=== PATIENT | male | born 1965 | race Caucasian/White ===

== ENCOUNTER → 2016-07-27 | Outpatient (CLI) | payer BC ==
--- NOTE | 2016-07-27 20:55 | CT ---
EXAMINATION TYPE: CT abdomen pelvis wo con DATE OF EXAM: 07/27/2016 7:11 PM HISTORY: Right lower quadrant pain x [address] DLP: 1005.00 mGycm. Automated Exposure Control for Dose Reduction was Utilized. TECHNIQUE: CT scan of the abdomen and pelvis is performed without oral or IV contrast. COMPARISON: CT abdomen and pelvis April 23, 2009. FINDINGS: Within the limitations of a non-contrast study, the following observations are made. LUNG BASES: No significant abnormality is appreciated. LIVER/GB: Liver is markedly hypodense consistent with diffuse fatty infiltration. PANCREAS: No significant abnormality is seen. SPLEEN: Spleen is mildly enlarged at 13.6 cm on long axis on coronal image 64 not significantly banerjee ed from prior however. ADRENALS: No significant abnormality is seen. KIDNEYS: No renal stones or hydronephrosis is evident bilaterally. BOWEL: Evaluation bowel is slightly suboptimal secondary to lack of enteric contrast. Normal-appearin g appendix is seen from cecum. No suspicious small or large bowel dilatation is seen. There is single diverticulum in the sigmoid colon on axial image 75. No CT evidence for acute diverticulitis. GENITAL ORGANS: No suspicious abnormality is identified. LYMPH NODES: No greater than 1cm abdominal or pelvic lymph nodes are appreciated. Prominent but subce ntimeter bilateral groin lymph nodes are seen. OSSEOUS STRUCTURES: Mild multilevel spurring in the thoracolumbar spine is present. There is facet ar thropathy lower lumbar levels. OTHER: No significant additional abnormality is seen. IMPRESSION: No significant finding is seen on noncontrast study to account for patient's symptoms.
== END | disposition home or self-care (01) ==
LOC: RADCTMAIN 18:54
PROVIDERS: ATTEND Family Medicine
DX: R10.32 Left lower quadrant pain (principal)
CPT/HCPCS: 74176

== ENCOUNTER → 2019-04-27 | Outpatient (CLI) | payer BC ==
--- NOTE | 2019-04-27 18:38 | CT ---
EXAMINATION TYPE: CT brain wo con DATE OF EXAM: 04/27/2019 COMPARISON: None INDICATION: Right sided headaches. DLP: 1073 mGycm, Automated exposure control for dose reduction was used. CONTRAST: None CT of the brain is performed utilizing 3 mm thick sections through the posterior fossa and 3 mm thick sections through the remaining calvarium. Study is performed within 24 hours of arrival to the hosp ital. No abnormal hyperdensity is present to suggest an acute intracranial hemorrhage. No mass lesion is evident. No acute infarcts are evident. Subtle subcortical white matter change may be present in the right par ietal-occipital region. This could be further evaluated with MRI. This could be chronic white matter change. Ventricles and sulci are appropriate for the patient age. Paranasal sinuses and mastoid air cells within the [id number] are clear. IMPRESSIONS: 1. Subtle white matter change in the subcortical white matter of the right parietal-occipital regio n more likely related to chronic ischemia. MRI could further evaluate this finding.
== END | disposition home or self-care (01) ==
LOC: RADCTMAIN 16:50
PROVIDERS: ATTEND Family Medicine
DX: R90.89 Other abnormal findings on diagnostic imaging of central nervous system (principal); G43.909 Migraine, unspecified, not intractable, without status migrainosus
CPT/HCPCS: 70450

== ENCOUNTER → 2019-05-24 | Outpatient (CLI) | payer BC ==
--- NOTE | 2019-05-24 16:26 | MR ---
EXAMINATION TYPE: MR brain wo con DATE OF EXAM: 05/24/2019 COMPARISON: Prior MRI brain June 19, [address] brain April 27, 2019. HISTORY: Slight Headache TECHNIQUE: Multiplanar, multisequence imaging of the brain and brainstem is performed without IV cont rast. FINDINGS: Diffusion weighted images demonstrate no evidence of a recent infarct or other diffusion abnormality. There is no worrisome extra-axial fluid collection. The ventricular system and cisternal spaces are normal in size and appearance. The brain volume is age appropriate. Occasional small focus of T2 hyp erintensity seen throughout the white matter bilaterally. For reference to adjacent 3 to 4 mm lesions right frontal lobe axial image 23 redemonstrated. There are 4-5 scattered tiny lesions on axial imag e 21 more numerous from 2010 MRI. I estimate roughly 10-12 scattered lesions on current study. Midline structures demonstrate normal morphology. The craniocervical junction appears within normal limits. Normal vascular flow voids are present. Severe mucosal thickening left maxillary sinus with s ome patchy dependent fluid is now present. More mild mucosal thickening inferiorly in right maxillary sinus is seen currently. There is mild to moderate mucosal thickening anterior ethmoid sinuses bilat erally more prominent from prior. IMPRESSION: 1. Mild nonspecific white matter changes with some progression from 2010 MRI. Altered vascular mechan ics related to chronic migraine headaches and/or products of chronic small vessel ischemic change wou ld be in differential. 2. Chronic paranasal sinus disease as detailed above more prominent from the 2010 MRI and more recent [address]. New acute on chronic left maxillary sinus disease is noted from most recent CT.
== END | disposition home or self-care (01) ==
LOC: RADMRIMAIN 15:38
PROVIDERS: ATTEND Family Medicine
DX: R90.89 Other abnormal findings on diagnostic imaging of central nervous system (principal); R51 Headache
CPT/HCPCS: 70551

== ENCOUNTER → 2019-06-08 | Outpatient (CLI) | payer BC | END | disposition home or self-care (01) | LOC: LABWHC1 14:46 | PROVIDERS: ATTEND Otolaryngology | DX: I77.6 Arteritis, unspecified (principal); R51 Headache; R53.83 Other fatigue | CPT/HCPCS: 36415; 85652; 86038; 86431 ==

== ENCOUNTER → 2020-08-06 | Outpatient (CLI) | payer OTHER, MEDICARE | END | disposition home or self-care (01) | LOC: LABWHC1 15:41 | PROVIDERS: ATTEND Family Medicine | DX: Z03.818 Encounter for observation for suspected exposure to other biological agents ruled out (principal); Z20.822 Contact with and (suspected) exposure to COVID-19 | CPT/HCPCS: U0003; C9803 ==

== ENCOUNTER → 2020-10-28 | Outpatient (CLI) | payer BC, MEDICARE, OTHER ==
[2020-10-28 14:14] VITALS: BP 128/83; PULSE 72; RESP 16; TEMP 97.8
--- NOTE | 2020-10-28 14:42 | P.PAINCN ---
History of Present Illness - Reason for Consult Consult date: 10/28/20 - History of Present Illness This is 55 years old male with a history of severe chronic low back pain, started more than 3 months ago, patient reported that he had similar episode of low back pain centered over the last few years, and the pain intensity of this time is more severe than the previous years, the pain is constant, denies in the low back area, is not radiated to the lower extremity, denies any numbness or ti ngling sensation, denies any weakness in the lower extremity, denies any change in bowel movement or urination, patient had the physical therapy for few weeks without any benefit, patient tried medications Tylenol, Motrin, and he used steroid Dose pack without any benefit. Past Medical History Additional Past Medical History / Comment(s): Hernia History of Any Multi-Drug Resistant Organisms: None Reported Additional Past Surgical History / Comment(s): Bicep Surgery 6 years ago Past Anesthesia/Blood Transfusion Reactions: No Reported Reaction Past Psychological History: No Psychological Hx Reported Smoking Status: Never smoker Past Drug Use History: None Reported Physical Exam Vitals: Vital Signs Temp Pulse Resp BP Pulse Ox 10/28/20 13:59 97.8 F 72 16 128/83 98 Intake and Output 10/27/20 10/28/20 10/28/20 22:59 06:59 14:59 Other: Weight 97.522 kg Physical Examinations : -Constitutiona : Cooperative , not in acute distress . -HEENT : nech : supple , no Lymphadenopathy , normal thyroid size . : eyes : no ptosis , no icterus, no photophobia . - neurologic : Cranial nerve II to XII intact , no focal neurological deffecit . -psychatric : alert , oriented X 3 , appropriate affect , intact judgment and insight . -Lymphatic : no Lymphadenopathy . - musculoskeltal : Lumber spine moter stegnth lower extremities ,thigh and legs 5/5 Right side , 5/5 Left side deep tendon reflexes : normal Knee Jerk , normal ankle Jerk lumber facet Loading Test =positive Right , positive Left Range of motion of the lumbar spine Flexion 60 degrees, extension 10 degrees strait leg raising test = negative bilaterally Fabere test= negative bilaterally . mild tenderness over the Sacroiliac joint on the Right , and Left sides Results Comments: MRI of the lumbar spine L2-3 lumbar bulging disc disease and facet arthropathy L3 4 right foraminal protrusion and moderate canal stenosis and facet joint hypertrophy at L4 5 disc protrusion and facet joint hypertrophy and moderate foraminal stenosis L5-S1 facet joint hypertrophy Assessment and Plan Plan: Assessment and plan=1-lumbar spondylosis with lumbar facet arthropathy without myelopathy. 2-Lumbar foraminal stenosis. 3-lumbar degenerative disc disease. A shunt would be good candidate for diagnostic medial branch block lumbar area at L 3, L4, L5 bilaterally x2 possible RFA Time with Patient: Greater than 30 PQRS Measure Charge Sheet Measure #130: Documentation of Current Meds in Medical Chart: Patient's medications documented in chart Measure #226: Tobacco Use: Screen & Cessation Intervention: Pt not a tobacco user Measure #111: Pneumonia Vaccination: Pneumococcal vaccine NOT administered or previously given Measure #47: Advance Care Plan: Advance care planning discussed & documented, pt chose/unable to give Measure #412: Opioid Treatment Agreement: No documentation of signed opioid treatment agreement Measure #408: Opioid Therapy Follow-up Evaluation: Patient had NO f/u eval minimum every 3 months during opioid therapy Measure #317: Preventitive Care & Scrn High Bld Press & F/U: Normal blood pressure, f/u not required Measure #128: Body Mass Index (BMI) Screening & Follow-up: BMI documented ABOVE normal parameters - f/u documented Measure #131: Pain Assessment & Follow-up: Pain positive & plan documented, Follow-up scheduled Measure #431: Unhealthy Alcohol Use Preventative Care & Scrn: Patient not identified as an unhealthy alcohol user PQRS Narrative: Blood Pressure 128/83 Pain Intensity [Lower Back] 6 Scale Used Numeric (1 - 10) Hx Alcohol Use (MH) Yes
== END | disposition home or self-care (01) ==
LOC: PNWHC3 13:54
PROVIDERS: ATTEND Specialist
DX: M48.061 Spinal stenosis, lumbar region without neurogenic claudication (principal); M51.26 Other intervertebral disc displacement, lumbar region; M51.36 Other intervertebral disc degeneration, lumbar region; M47.816 Spondylosis without myelopathy or radiculopathy, lumbar region; M46.96 Unspecified inflammatory spondylopathy, lumbar region
CPT/HCPCS: 99211

== ENCOUNTER 2020-11-22 06:32 | Day surgery (SDC) | payer BC, OTHER ==
[2020-11-20 11:45] VITALS: BMI 28.3
[~2020-11-22 06:32] MED LIST: LACTATED RINGERS 1,000 ML IV SCH
[2020-11-22 07:08] VITALS: TEMP 98.2
[2020-11-22] MEDS ORDERED: LIDOCAINE 1% (10MG/ML) FOR IV START INTRADERMA ONE (07:10)
[2020-11-22] MEDS ORDERED: MIDAZOLAM 2 MG/2 ML VIAL ONE (07:27)
[2020-11-22] MEDS ORDERED: methylPREDNISolone ACETATE 40 MG/ML 1 ML VIAL ONE (07:27)
[2020-11-22] MEDS ORDERED: fentaNYL (PF) 50 MCG/ML 2 ML AMP ONE (07:27)
[2020-11-22] MEDS ORDERED: ROPIVACAINE 5MG/ML 20ML VIAL ONE (07:27)
--- NOTE | 2020-11-22 07:45 | P.PCN ---
Date of Procedure: 11/22/20 Procedure(s) Performed: PREOPERATIVE DIAGNOSIS : 1- Lumbar spondylosis with Facet Arthropathy without myelopathy . 2- Lumber degenerative disc disease POSTOPERATIVE DIAGNOSIS: 1- Lumbar spondylosis with Facet Arthropathy without myelopathy . 2- Lumber degenerative disc disease PROCEDURE: Diagnostic bilateral L3 , L4 , and L5 medial branch block under fluoroscopy guidance(fluoroscopy images available in the radiology Department ) ( To target the facet joint between L4-5 , and L5-S1 ) ANESTHESIA: monitered anesthesia care as per anesthesia department EBL: Minimal COMPLICATION: None PROCEDURE INDICATION: Chronic low back pain secondary to Facet arthropathy unresponsive to conservative treatment. PROCEDURE DESCRIPTION: the patient was seen and identified in the preop holding area , risks and benefits and possible complications of the procedure and alternative were discussed with the patient, and the patient agreed to proceed with the procedure and signed the consent and vital signs monitored during the procedure and fluoroscopy was used to maximize the benefit and accuracy of the needle placement, and sedation was given to decrease patient anxiety, patient was taken to the procedure room and placed in prone position vital signs monitored in the back prepped with chlorhexidine X3 then under strict sterile technique using a right oblique fluoroscopy ,the junction of the transverse process and the superior articulating process of the right L3 , L4 , and L5 vertebra which corresponding to the fluoroscopy image of the eye of the Wilson dog on the block side for the medial branches and subsequently , after local infiltration of skin and subcu tissuies with Ropivacaine 0.5 % , one mL at each level ,then 22-gauge Quincke-type needles , 3 needle was used , each one of them placed at the junction of the base of the transverse process and the superior articular process at the appropriate level, and the needle was advanced until the periosteum contacted, needle placement confirmed with AP oblique and lateral view and after appropriate needle placement confirmed, and after negative aspiration for heme and CSF and there was no paresthesia 1-1/2 mL of Ropivacaine 0.5% mixed with 20 mg Depo-Medrol , then half mL injected at each level after negative aspiration the needle subsequently removed and the same procedure repeated for the left side at left side at L3 , L4 and L5 levels. At the end of the procedure and the needles removed and a bandage applied after the skin was cleaned the cleaning solution patient taken to recovery room in stable condition and monitors in the recovery room for 20-30 minutes and discharged home in stable condition after discharge criteria met and patient will follow up with the pain clinic in 2-4 weeks
[2020-11-22] MEDS ORDERED: IV FLUID CONTINUATION 1,000 ML IV ONE (07:50)
[2020-11-22 07:52] VITALS: RESP 18
[2020-11-22 08:17] VITALS: BP 138/72; PULSE 78
--- NOTE | 2020-11-22 09:22 | FL ---
EXAMINATION TYPE: FL guided pain mgmt statistic DATE OF EXAM: 11/22/2020 HISTORY: Fluoroscopy time 7 seconds of fluoroscopy provided. IMPRESSION: 1. Fluoroscopy time.
== END 2020-11-22 08:21 | disposition home or self-care (01) ==
LOC: ORPAIN 06:32
PROVIDERS: ATTEND Specialist
DX: G89.29 Other chronic pain (principal); M47.816 Spondylosis without myelopathy or radiculopathy, lumbar region; M51.36 Other intervertebral disc degeneration, lumbar region; I10 Essential (primary) hypertension; K21.9 Gastro-esophageal reflux disease without esophagitis; Z79.899 Other long term (current) drug therapy
CPT/HCPCS: 64493; 64494; J2250; J1030; J3010; J2795

== ENCOUNTER 2020-12-27 06:35 | Day surgery (SDC) | payer BC ==
[2020-12-24 13:23] VITALS: BMI 29.4
[2020-12-27 06:59] VITALS: TEMP 96.3
[2020-12-27] MEDS ORDERED: LACTATED RINGERS 1,000 ML IV ONE (07:11)
[2020-12-27] MEDS ORDERED: LACTATED RINGERS 1,000 ML IV SCH (07:13)
[2020-12-27] MEDS ORDERED: methylPREDNISolone ACETATE 40 MG/ML 1 ML VIAL ONE (07:34)
[2020-12-27] MEDS ORDERED: ROPIVACAINE 5MG/ML 20ML VIAL ONE (07:34)
[2020-12-27] MEDS ORDERED: fentaNYL (PF) 50 MCG/ML 2 ML AMP ONE (07:34)
[2020-12-27] MEDS ORDERED: MIDAZOLAM 2 MG/2 ML VIAL ONE (07:34)
--- NOTE | 2020-12-27 07:46 | P.PCN ---
Date of Procedure: 12/27/20 Procedure(s) Performed: PREOPERATIVE DIAGNOSIS : 1- Lumbar spondylosis with Facet Arthropathy without myelopathy . 2- Lumber degenerative disc disease POSTOPERATIVE DIAGNOSIS: 1- Lumbar spondylosis with Facet Arthropathy without myelopathy . 2- Lumber degenerative disc disease PROCEDURE: Diagnostic bilateral L3 , L4 , and L5 medial branch block under fluoroscopy guidance(fluoroscopy images available in the radiology Department ) ( To target the facet joint between L4-5 , and L5-S1 ) #2nd ANESTHESIA: monitered anesthesia care as per anesthesia department EBL: Minimal COMPLICATION: None PROCEDURE INDICATION: Chronic low back pain secondary to Facet arthropathy unresponsive to conservative treatment. PROCEDURE DESCRIPTION: the patient was seen and identified in the preop holding area , risks and benefits and possible complications of the procedure and alternative were discussed with the patient, and the patient agreed to proceed with the procedure and signed the consent and vital signs monitored during the procedure and fluoroscopy was used to maximize the benefit and accuracy of the needle placement, and sedation was given to decrease patient anxiety, patient was taken to the procedure room and placed in prone position vital signs monitored in the back prepped with chlorhexidine X3 then under strict sterile technique using a right oblique fluoroscopy ,the junction of the transverse process and the superior articulating process of the right L3 , L4 , and L5 vertebra which corresponding to the fluoroscopy image of the eye of the Wilson dog on the block side for the medial branches and subsequently , after local infiltration of skin and subcu tissuies with Ropivacaine 0.5 % , one mL at each level ,then 22-gauge Quincke-type needles , 3 needle was used , each one of them placed at the junction of the base of the transverse process and the superior articular process at the appropriate level, and the needle was advanced until the periosteum contacted, needle placement confirmed with AP oblique and lateral view and after appropriate needle placement confirmed, and after negative aspiration for heme and CSF and there was no paresthesia 1-1/2 mL of Ropivacaine 0.5% mixed with 20 mg Depo-Medrol , then half mL injected at each level after negative aspiration the needle subsequently removed and the same procedure repeated for the left side at left side at L3 , L4 and L5 levels. At the end of the procedure and the needles removed and a bandage applied after the skin was cleaned the cleaning solution patient taken to recovery room in stable condition and monitors in the recovery room for 20-30 minutes and discharged home in stable condition after discharge criteria met and patient will follow up with the pain clinic in 2-4 weeks
[2020-12-27] MEDS ORDERED: IV FLUID CONTINUATION 1,000 ML IV ONE (07:51)
[2020-12-27 08:10] VITALS: BP 118/74; PULSE 88; RESP 16
--- NOTE | 2020-12-27 08:19 | FL ---
EXAMINATION TYPE: FL guided pain mgmt statistic DATE OF EXAM: 12/27/2020 HISTORY: Fluoroscopy time 10 seconds of fluoroscopy provided. IMPRESSION: 1. Fluoroscopy time.
== END 2020-12-27 08:29 | disposition home or self-care (01) ==
LOC: ORPAIN 06:35
PROVIDERS: ATTEND Specialist
DX: M47.816 Spondylosis without myelopathy or radiculopathy, lumbar region (principal); M51.36 Other intervertebral disc degeneration, lumbar region; I10 Essential (primary) hypertension; K21.9 Gastro-esophageal reflux disease without esophagitis; Z79.899 Other long term (current) drug therapy
CPT/HCPCS: 64493; 64494; J2250; J1030; J3010; J2795

== ENCOUNTER → 2021-01-27 | Outpatient (CLI) | payer BC ==
[2021-01-27 14:58] VITALS: BP 138/84; PULSE 69; RESP 18
--- NOTE | 2021-01-27 19:04 | P.PN ---
Subjective Progress Note Date: 01/27/21 This is Follow up visite for this 56 years old male with a history of severe chronic low back pain, he is diagnosed with lumbar spondylosis with lumbar facet arthropathy and lumbar foraminal stenosis , and lumbar degenerative disc disease , recently would have done diagnostic medial branch block lumbar area at L3 , L4 , L5 , bilaterally x2 , patient reported that he got good pain relief which is started second day after the first block, and he had no benefit after the second diagnostic medial branch block, basically patient had a negative result after both injections , the pain is constant, denies any numbness or tingling sensation, denies any weakness in the lower extremity, denies any change in bowel movement or urination, patient had the physical therapy for few weeks without any benefit, patient tried medications Tylenol, Motrin, and he used steroid Dose pack without any benefit. Physical Examinations : -Constitutiona : Cooperative , not in acute distress . -HEENT : nech : supple , no Lymphadenopathy , normal thyroid size . : eyes : no ptosis , no icterus, no photophobia . - neurologic : Cranial nerve II to XII intact , no focal neurological deffecit . -psychatric : alert , oriented X 3 , appropriate affect , intact judgment and insight . -Lymphatic : no Lymphadenopathy . - musculoskeltal : Lumber spine moter stegnth lower extremities ,thigh and legs 5/5 Right side , 5/5 Left side deep tendon reflexes : normal Knee Jerk , normal ankle Jerk lumber facet Loading Test =positive Right , positive Left Range of motion of the lumbar spine Flexion 60 degrees, extension 10 degrees strait leg raising test = negative bilaterally Fabere test= negative bilaterally . mild tenderness over the Sacroiliac joint on the Right , and Left sides Results MRI of the lumbar spine L2-3 lumbar bulging disc disease and facet arthropathy L3 4 right foraminal protrusion and moderate canal stenosis and facet joint hypertrophy at L4 5 disc protrusion and facet joint hypertrophy and moderate foraminal stenosis L5-S1 facet joint hypertrophy Assessment and plan=1-lumbar spondylosis with lumbar facet arthropathy without myelopathy. 2-Lumbar foraminal stenosis. 3-lumbar degenerative disc disease. Patient had negative result with the diagnostic medial branch block (he gets pain relief after 24 hours from the block , after the first block , and he had no pain relief after the second diagnostic block ) Patient could benefit from lumbar epidural steroid injection at L4 5 Patient will continue to do home exercise program ,,and is already done physical therapy Patient will continue to use Motrin Objective - Vital Signs Vital signs: Vital Signs Temp Pulse 69 01/27/21 14:41 Resp 18 01/27/21 14:41 BP 138/84 01/27/21 14:41 Pulse Ox 97 01/27/21 14:41
== END | disposition home or self-care (01) ==
LOC: PNWHC3 13:54
PROVIDERS: ATTEND Specialist
DX: M47.896 Other spondylosis, lumbar region (principal); M48.061 Spinal stenosis, lumbar region without neurogenic claudication; M51.36 Other intervertebral disc degeneration, lumbar region
CPT/HCPCS: 99211

== ENCOUNTER 2021-02-25 06:29 | Day surgery (SDC) | payer BC ==
[2021-02-21 14:09] VITALS: BMI 29.0
[2021-02-25 06:55] VITALS: RESP 16; TEMP 97.7
[2021-02-25] MEDS ORDERED: LIDOCAINE 1% (10MG/ML) FOR IV START INTRADERMA ONE (07:04)
[2021-02-25] MEDS ORDERED: MIDAZOLAM 2 MG/2 ML VIAL ONE (07:12)
[2021-02-25] MEDS ORDERED: methylPREDNISolone ACETATE 40 MG/ML 1 ML VIAL ONE (07:12)
[2021-02-25] MEDS ORDERED: SODIUM CHLORIDE 0.9% (PF) 10 ML VIAL ONE (07:12)
[2021-02-25] MEDS ORDERED: fentaNYL (PF) 50 MCG/ML 2 ML AMP ONE (07:12)
[2021-02-25] MEDS ORDERED: IOPAMIDOL M200 10 ML VIAL ONE (07:12)
--- NOTE | 2021-02-25 07:25 | P.PCN ---
Date of Procedure: 02/25/21 Procedure(s) Performed: PREOPERATIVE DIAGNOSIS: 1- Lumbar Degenerative Disc Diseases 2-Lumbar spondylosis with Facet arthropathy without myelopathy POSTOPERATIVE DIAGNOSIS: Same as preop diagnosis. PROCEDURE 1. Lumbar epidural steroid injection under fluoroscopic guidance at the L4-5 level. (Fluoroscopy imaging was available in radiology department) 2. Lumbar epidurogram. ANESTHESIA: Local with 1% lidocaine 3 ml and , moderate sedation with intravenous Versed 2 mg ,and fentanyle 50 Mcg EBL: Minimal PROCEDURE INDICATION: The patient with low back pain and radiculitis symptoms unresponsive to conservative treatment. Fluoroscopy was used to optimize visualization of the needle placement and to maximize safety. PROCEDURE DESCRIPTION / TECHNIQUE: The patient was seen and identified in the preoperative area. Risks, benefits, complications including but not limited to infections ,bleeding ,allergic reaction to the medications ,nerve damage and not complete pain releife , and alternatives were discussed with the patient. The patient agreed to proceed with the procedure and signed the consent. IV was started, and vital signs were stable. Patient was taken to the OR and time out was completed. The patient was placed in the prone position on procedure table and a pillow was placed under the abdomen to reduce lumbar lordosis. The lumbosacral area was prepped and draped in the usual sterile fashion.ere closely monitored during the procedure. Co nscious sedation was used during the procedure to decrease patients anxiety. Vital signs was monitered during the entire procedure. Using anterior-posterior fluoroscopy, the L4-5 interlaminar space was identified and the skin over this site was marked and then infiltrated with 1% lidocaine subcutaneously. Subsequently, a 20-gauge Tuohy epidural needle was inserted and advanced toward the epidural space using the ``Loss of resistance technique and guided by AP and lateral fluoroscopy. The correct needle position in the epidural space was verified with the injection of 2 mL of the water soluble contrast dye Isovue 200 contrast and observing an excellent epidurogram with the epidural spread of the dye, after negative aspiration for blood and CSF and in the absence of paresthesias. Again after negative aspiration, a 6 ml mixture containing 80 mg of Depo-medrol , and 2 ml of preservative free Normal Saline, and 2 ml of preservative free lidocaine 1% solution was injected and a washout of epidurogram was seen. Needle was withdrawn intact, skin was cleansed, and bandages were applied. COMPLICATIONS: None DISPOSITION / PLANS: The patient was placed in a supine position and transferred to the recovery area in a stable condition for observation. There was no evidence of lower extremity motor or sensory deficit after the procedure. Patient was discharged from the recovery room after meeting discharge criteria. Home discharge instructions were given to the patient by the staff. The patient was reexamined prior to discharge. The patient will schedule a follow up in the clinic in 2-4 weeks.
[2021-02-25] MEDS ORDERED: IV FLUID CONTINUATION 700 ML IV ONE (07:30)
[2021-02-25 08:13] VITALS: BP 118/68; PULSE 63
--- NOTE | 2021-02-25 10:14 | FL ---
Fluoroscopy HISTORY: Pain 2 seconds fluoroscopy time supplied to the referring clinician. 1 intraoperative C-arm images docume nt the procedure. See dictated report from anesthesia.
== END 2021-02-25 08:01 | disposition home or self-care (01) ==
LOC: ORPAIN 06:29
PROVIDERS: ATTEND Specialist
DX: M51.36 Other intervertebral disc degeneration, lumbar region (principal); M47.816 Spondylosis without myelopathy or radiculopathy, lumbar region
CPT/HCPCS: 62323; J2250; J1030; J3010; Q9966; 99152

== ENCOUNTER → 2021-03-05 | Outpatient (CLI) | payer BC ==
--- NOTE | 2021-03-06 02:04 | XR ---
EXAMINATION TYPE: XR abdomen 1V DATE OF EXAM: 03/05/2021 5:02 PM CLINICAL HISTORY: Constipation. TECHNIQUE: Upright images of the abdomen and pelvis were obtained COMPARISON: None. FINDINGS: Nonspecific bowel gas pattern. Elevation of the right hemidiaphragm. No significantly abnor mal colonic fecal debris. There is no visceromegaly, pneumoperitoneum, or abnormal calcification appr eciated. The lung bases are clear. The osseous structures are intact. Degenerative changes of the lum bar spine. IMPRESSION: Nonspecific bowel gas pattern.
== END | disposition home or self-care (01) ==
LOC: RADXRMAIN 16:41
PROVIDERS: ATTEND Family Medicine
DX: K59.00 Constipation, unspecified (principal)
CPT/HCPCS: 74018

== ENCOUNTER → 2021-03-27 | Outpatient (CLI) | payer BC ==
--- NOTE | 2021-03-28 07:43 | CT ---
EXAMINATION TYPE: CT abdomen pelvis wo con DATE OF EXAM: 03/27/2021 COMPARISON: 07/27/2016 HISTORY: Diverticulosis. LT side/back pain. Oral contrast CT DLP: 884 mGycm Examination of the solid and hollow viscera is limited given the lack of contrast. FINDINGS: LUNG BASES: No evidence for nodule. No evidence for infiltrate. Small sliding-type hiatal hernia. LIVER/GB: The gallbladder is unremarkable. No space-occupying hepatic lesion. PANCREAS: No pancreatic mass identified. No inflammatory process seen. SPLEEN: No evidence for splenomegaly. No intrasplenic lesions seen. ADRENALS: No adrenal nodules identified. No evidence for thickening. KIDNEYS: No evidence for renal mass. No nephrolithiasis. No hydronephrosis. BOWEL: Appendix has a normal appearance. No evidence of bowel obstruction. No inflammatory process. M ild sigmoid diverticulosis without diverticulitis. Lymph nodes: No evidence for adenopathy greater than 1 cm. Abdominal aorta: Atheromatous changes seen. No evidence for aneurysm. Genital organs: No significant abnormality. Other: Mild degenerative change lumbar spine. IMPRESSION: 1. Mild sigmoid diverticulosis without diverticulitis. No significant abnormality appreciated.
== END | disposition home or self-care (01) ==
LOC: RADCTMAIN 16:13
PROVIDERS: ATTEND Surgery
DX: K57.32 Diverticulitis of large intestine without perforation or abscess without bleeding (principal)
CPT/HCPCS: 74176

== ENCOUNTER 2021-04-15 06:29 | Day surgery (SDC) | payer BC ==
[2021-04-10 08:48] VITALS: BMI 29.0
[2021-04-15 06:47] VITALS: TEMP 98.2
[2021-04-15] MEDS: LACTATED RINGERS 1,000 ML IV SCH ×2 (06:54→07:20)
[2021-04-15] MEDS ORDERED: methylPREDNISolone ACETATE 80 MG/ML 1 ML VIAL ONE (07:29)
[2021-04-15] MEDS ORDERED: fentaNYL (PF) 50 MCG/ML 2 ML AMP ONE (07:29)
[2021-04-15] MEDS ORDERED: IOPAMIDOL M200 10 ML VIAL ONE (07:29)
[2021-04-15] MEDS ORDERED: MIDAZOLAM 2 MG/2 ML VIAL ONE (07:29)
[2021-04-15] MEDS ORDERED: LACTATED RINGERS 1,000 ML IV SCH (07:30)
--- NOTE | 2021-04-15 07:36 | P.PCN ---
Date of Procedure: 04/15/21 Description of Procedure: Procedure: 1. L4-L5 Epidural steroid injection under fluoroscopic guidance, 2. Lumbar epidurogram PREOPERATIVE DIAGNOSIS: Lumbar degenerative disc disease, and Lumbar radiculopathy. POSTOPERATIVE DIAGNOSIS: Lumbar degenerative disc disease, and Lumbar radic ulopathy. SURGEON: Phylicia Campos ANESTHESIA: Local with 1% lidocaine, and IV sedation: Versed 2 mg, and fentanyl 100 g. EBL: None. Specimen removed: None Fluoroscopic image: saved to electronic medical records PROCEDURE INDICATION: The patient had history of Lumbar degenerative disc disease and Lumbar radiculopathy. Patient had more than 80% pain relief pain relief with the previous epidural steroid injection for more than 3 weeks. Failed to conservative therapy. Came here for repeat epidural steroid injection. PROCEDURE DESCRIPTION: The patient was seen and identified in the preoperative area. Risks, benefits, complications, and alternatives were discussed with the patient. The patient agreed to proceed with the procedure and signed the consent. IV was started, and vital signs were stable. Patient was taken to the procedure area, and time out was completed. The patient was placed in the prone position on procedure table and a pillow was placed under the abdomen to reduce lumbar lordosis. The lumbosacral area was prepped and draped in the usual sterile fashion. Critical pause was taken. Vital signs were closely monitored during the procedure. Using anterior-posterior fluoroscopy, the L4-L5 interlaminar space was identified, and skin and deeper tissues were localized with 1% lidocaine. Using anterior-posterior fluoroscopy, lateral fluoroscopy, and [id number] technique, a 20 gauge 3.5 Tuohy epidural needle entered the epidural space. After negative aspiration of CSF and blood with no paresthesias, 2 ml of [id number] contrast dye was injected and an excellent epidurogram was seen. Again after negative aspiration of CSF and blood with no paresthesias, 10 mL of block solution was injected into the epidural space. Block solution contained 80 mg of Depo-Medrol, and 9 mL of preservative-free normal saline. Needle was withdrawn intact, skin was cleansed, and bandages were applied. COMPLICATIONS: None. DISPOSITION / PLANS: The patient was placed in a supine position and transferred to the recovery area in a stable condition for observation. Patient was discharged from the recovery room after meeting discharge criteria. Home discharge instructions given to the patient by the staff. The patient was reexamined prior to discharge. The patient will schedule a follow up in the clinic in 4 weeks.
[2021-04-15 07:57] VITALS: RESP 20
[2021-04-15 08:06] VITALS: BP 142/67; PULSE 70
--- NOTE | 2021-04-15 08:06 | FL ---
Fluoroscopy History: LUMBAR EPI INJ lumbar epidural steroid injection. 3 sec fl. 2 images sent.
== END 2021-04-15 08:12 | disposition home or self-care (01) ==
LOC: ORPAIN 06:29
DX: M51.16 Intervertebral disc disorders with radiculopathy, lumbar region (principal); M51.36 Other intervertebral disc degeneration, lumbar region
CPT/HCPCS: 62323

== ENCOUNTER → 2021-05-26 | Outpatient (CLI) | payer BC ==
--- NOTE | 2021-05-26 14:32 | P.PN ---
Subjective Progress Note Date: 05/26/21 Principal diagnosis: A 56 yr old male with a history of severe and chronic low back pain secondary to lumbar degenerative disc diseases and lumbar spondylosis with facet arthropathy presents today for an evaluation status post L4-L5 LESI #2. Patient states he expressed 70% pain relief with the procedure. Pain level is 4 out of 10, dull and achy in the lumbar spine, with occasional radiation to the left groin. Pain is provoked by sitting bending or lifting. Pain is alleviated with medications, injections, ice, heat, physical therapy, chiropractic treatments, home exercise regimen, repositioning and rest. Interventional pain procedures completed include L4-L5 LESI #2 Patient is currently on Motrin OTC Patient denies any side effects of the medication(s), denies excessive drowsiness or sleepiness, denies suicidal ideation and reports that the current pain medication is helping to control the pain and improve activities of daily living. Patient denies any motor or sensory deficits. Patient denies any fever or night sweats, denies any change in the bowel movements or urination. Physical Examination: -Constitutional: Cooperative. Not in acute distress . -HEENT: Neck is supple. No lymphadenopathy. No thyromegaly. Normal thyroid size. Eyes: No ptosis , no icterus, no photophobia. ENT: No auditory deficits. Normal oropharynx. No Thrush. - Respiratory: Chest clear to auscultations bilaterally. No wheezing. No rhonchi. - Cardiovascular: Regular rate and rhythm. S1 / S2 , no S3 , no S4. - Gastrointestinal: Abdomen soft no tenderness. Bowel sounds positive in all four quadrants. No organomegaly. - Genitourinary: Deferred. - Neurologic: Cranial nerve II to XII intact. No focal neurological deficits. - Psychatric: Alert & oriented x 3. Matching mood & appropriate affect. Judgment and insight intact. - Lymphatic: No Lymphadenopathy. - Musculoskeletal: Cervical spine: Muscle bulk/ tone/ strength in the bilateral upper extremities normal. Facet loading test cervical area positive. Lumbar spine: Motor bulk/ tone/ strength lower extremities , thigh and legs : 5/5 Deep tendon reflexes : Normal Knee Jerk. Normal Ankle Jerk . Mild vertebral body tenderness to palpation over the L4 Mild Lumbar Facet Loading Test positive Straight Leg Raise: positive at <60 degree right side/ left side Theo test: positive right side / left side Range of motion: Range of motion in flexion of the lumbar spine <60 degrees Range of motion: Extension of the lumbar spine <20 degrees Severe tenderness over the Sacroiliac joint: right side / left side Assessment and plan: Chronic low back pain secondary to lumbar degenerative disc disease , lumbar spondylosis with facet arthropathy without myelopathy Recommendation of KELLIE L4-L5 #3 Risks benefits of procedure discussed and patient verbalized understanding Discontinue aspirin and Motrin 5 days prior to procedure All patient questions answered MAPS reviewed and it was appropriate. I have spent 31 minutes on patient care today. Dr Prado was available by phone for the evaluation of this patient. The time was used to review the medical records including relevant urine studies and Prescription history (MAPs), review of the available imaging, evaluation and examination of the patient, coordination of care with the medical staff and if applicable referring physicians, as well as creation of the medical record Objective - Vital Signs Vital signs: Intake & Output 05/25/21 05/26/21 05/26/21 18:59 06:59 18:59 Weight 99.79 kg PQRS Measure Charge Sheet PQRS Narrative: Pain Intensity [Lower Back] 5 Hx Alcohol Use (MH) Yes Home Medications: Ambulatory Orders Olmesartan [Benicar] 20 mg PO DAILY 11/20/20 Omeprazole 20 mg PO Q48H 11/20/20
[2021-05-26 14:33] VITALS: BP 125/70; PULSE 86; RESP 18; TEMP 98.6
== END | disposition home or self-care (01) ==
LOC: PNWHC3 13:53
PROVIDERS: ATTEND Physician Assistant Medical
DX: M51.24 Other intervertebral disc displacement, thoracic region (principal); M51.26 Other intervertebral disc displacement, lumbar region; M46.96 Unspecified inflammatory spondylopathy, lumbar region
CPT/HCPCS: 99211

== ENCOUNTER 2021-06-13 10:12 | Observation (INO) | payer BC ==
--- NOTE | 2021-06-13 10:45 | ED ---
Chest Pain HPI - General Chief Complaint: Chest Pain Stated Complaint: Chest Pain Source: patient Mode of arrival: ambulatory Limitations: no limitations - History of Present Illness Initial Comments: 56-year-old male with past medical history of hypertension presents to the emergency department with chest pain. States that his symptoms started last night. Located over the left chest wall and is described as a pressure sensation without radiation. Denies any provocative factors. Currently 2 out of 10 in pain. Has had a previous cardiac workup however this was greater than 10 years ago. He denies associated nausea or vomiting. Does have some diaphoresis. No abdominal pain. No ripping or tearing sensation to his back. No fevers, chills or cough. No other alleviating, precipitating or modifying factors - Related Data Home Medications Medication Instructions Recorded Confirmed Omeprazole 20 mg PO DAILY 11/20/20 06/13/21 Ascorbic Acid [Vitamin C] 500 mg PO DAILY 06/13/21 06/13/21 Aspirin EC [Ecotrin Low Dose] 81 mg PO HS 06/13/21 06/13/21 Cholecalciferol [Vitamin D3 (25 25 mcg PO DAILY 06/13/21 06/13/21 Mcg = 1000 Iu)] Losartan Potassium 100 mg PO DAILY 06/13/21 06/13/21 Previous Rx's Medication Instructions Recorded Metoprolol Tartrate [Lopressor] 12.5 mg PO DAILY #30 tab 06/14/21 Allergies Allergy/AdvReac Type Severity Reaction Status Date / Time No Known Allergies Allergy Verified 06/13/21 11:09 Review of Systems ROS Statement: Those systems with pertinent positive or pertinent negative responses have been documented in the HPI. ROS Other: All systems not noted in ROS Statement are negative. EKG Findings - EKG Comments: EKG Findings:: EKG demonstrates sinus rhythm with a rate of 82. Irritable 169. QRS 104. QTC 394. No acute ST segment elevations or depressions concerning for ischemic changes Past Medical History Past Medical History: Hypertension Additional Past Medical History / Comment(s): Hernia History of Any Multi-Drug Resistant Organisms: None Reported Additional Past Surgical History / Comment(s): Bicep Surgery 6 years ago Past Anesthesia/Blood Transfusion Reactions: No Reported Reaction Past Psychological History: No Psychological Hx Reported Smoking Status: Never smoker Past Alcohol Use History: None Reported Past Drug Use History: None Reported - Past Family History Mother Family Medical History: Memory Impairment Father Family Medical History: CVA/TIA, Hypertension General Exam Limitations: no limitations General appearance: alert, in no apparent distress Head exam: Present: atraumatic, normocephalic, normal inspection Eye exam: Present: normal appearance, PERRL, EOMI. Absent: scleral icterus, conjunctival injection, periorbital swelling ENT exam: Present: normal exam, mucous membranes moist Neck exam: Present: normal inspection. Absent: tenderness, meningismus, lymphadenopathy Respiratory exam: Present: normal lung sounds bilaterally. Absent: respiratory distress, wheezes, rales, rhonchi, stridor Cardiovascular Exam: Present: regular rate, normal rhythm, normal heart sounds. Absent: systolic murmur, diastolic murmur, rubs, gallop, clicks GI/Abdominal exam: Present: soft, normal bowel sounds. Absent: distended, tenderness, guarding, rebound, rigid Extremities exam: Present: normal inspection, full ROM, normal capillary refill. Absent: tenderness, pedal edema, joint swelling, calf tenderness Back exam: Present: normal inspection Neurological exam: Present: alert, oriented X3, CN II-XII intact Psychiatric exam: Present: normal affect, normal mood Skin exam: Present: warm, dry, intact, normal color. Absent: rash Course Vital Signs 06/13/21 06/13/21 06/13/21 10:16 11:29 15:00 Temperature 97.9 F 98.0 F Pulse Rate 95 74 77 Respiratory 18 18 18 Rate Blood Pressure 173/81 155/91 115/79 O2 Sat by Pulse 98 98 98 Oximetry Chest Pain MDM - MDM Upon arrival patient is placed into room 7. A thorough history and physical exam was performed. I did request to give the patient's something for pain control however he refused. IV is established and laboratory studies are conducted. Troponin is negative. Chest x-ray demonstrates no acute process. Did discuss results with the patient. Due to age, risk factors and concerning history did recommend admission for which the patient did agree to. Spoke with Dr. Akhtar who agreed to admit the patient. He currently remains in stable condition awaiting a bed on the floor Disposition Clinical Impression: Chest pain Disposition: ADMITTED IP TO THIS [facility] Condition: Stable Is patient prescribed a controlled substance at d/c from ED?: No Decision to Admit Reason: Admit from EC Decision Date: 06/13/21 Decision Time: 13:12
[2021-06-13 10:57] LABS: Basophils % (A) 1 %; Eosinophils % (A) 0 %; HCT 45.7 % (39.0-53.0); Lymphocytes # (A) 1.2 k/uL (1.0-4.8); Lymphocytes % (A) 22 %; MCH 33.9 pg (25.0-35.0); MCV 96.8 fL (80.0-100.0); Mean Platelet Volume 8.3; Monocytes # (A) 0.4 k/uL (0-1.0); Monocytes % (A) 7 %; Neutrophils # (A) 3.8 k/uL (1.3-7.7); Neutrophils % (A) 69 %; Platelet Count 172 k/uL (150-450); RBC 4.72 m/uL (4.30-5.90); RDW 12.6 % (11.5-15.5); WBC 5.6 k/uL (3.8-10.6)
[2021-06-13 11:14] LABS: INR 0.9 (<1.2)
[2021-06-13 11:15] LABS: ALT 43 U/L (4-49); AST 27 U/L (17-59); African American GFR (CKD) >90 (>60 ml/min/1.73 sqM); Albumin 4.7 g/dL (3.5-5.0); Alkaline Phosphatase 63 U/L (38-126); Anion Gap 8 mmol/L; Blood Urea Nitrogen 12 mg/dL (9-20); Calcium 9.9 mg/dL (8.4-10.2); Carbon Dioxide 26 mmol/L (22-30); Chloride 105 mmol/L (98-107); Glucose 119 mg/dL (74-99); Lipase 81 U/L (23-300); Non-African American GFR(CKD) >90 (>60 ml/min/1.73 sqM); Partial Thromboplastin Time 23.2 sec (22.0-30.0); Potassium 4.3 mmol/L (3.5-5.1); Prothrombin Time 10.3 sec (9.0-12.0); Sodium 139 mmol/L (137-145); Total Bilirubin 1.2 mg/dL (0.2-1.3); Total Protein 7.7 g/dL (6.3-8.2)
--- NOTE | 2021-06-13 11:37 | XR ---
EXAMINATION TYPE: XR chest 2V DATE OF EXAM: 06/13/2021 COMPARISON: NONE HISTORY: Chest pain TECHNIQUE: Frontal and lateral views of the chest are obtained. FINDINGS: There is no focal air space opacity, pleural effusion, or pneumothorax seen. The cardiac silhouette size is within normal limits. There is eventration of right hemidiaphragm. There are overl karen leads. The osseous structures are intact. IMPRESSION: No acute cardiopulmonary process.
[2021-06-13] MEDS ORDERED: ASPIRIN 81 MG PO STA (13:11)
[2021-06-13] MEDS ORDERED: NITROGLYCERIN OINT 1 INCH/GM PACKET TOPICAL STA (13:11)
[2021-06-13] MEDS ORDERED: NALOXONE 0.4 MG/ML 1 ML VIAL IV PRN (13:12)
[2021-06-13 16:52] VITALS: RESP 16
--- NOTE | 2021-06-13 17:26 | ECHOF ---
Referral Reason:chest pain MEASUREMENTS -------- HEIGHT: 182.9 cm WEIGHT: 99.8 kg BP: IVSd: 1.2 cm (0.6 - 1.1) LVIDd: 3.5 cm (3.9 - 5.3) LVPWd: 1.1 cm (0.6 - 1.1) IVSs: 1.5 cm LVIDs: 2.3 cm LVPWs: 2.0 cm Ao Diam: 3.5 cm (2.0 - 3.7) AV Cusp: 2.5 cm (1.5 - 2.6) LA Diam: 3.2 cm (2.7 - 3.8) MV EXCURSION: 14.577 mm (> 18.000) MV EF SLOPE: 56 mm/s (70 - 150) EPSS: 1.1 cm MV E Yon: 0.52 m/s MV DecT: 213 ms MV A Yon: 0.53 m/s MV E/A Ratio: 0.97 RAP: 5.00 mmHg RVSP: 21.70 mmHg FINDINGS -------- Sinus rhythm. This was a technically adequate study. The left ventricular size is normal. There is borderline concentric left ventricular hypertrophy. Overall left ventricular systolic function is normal with, an EF between 55 - 60 %. The right ventricle is normal in size. The left atrial size is normal. The right atrial size is normal. The aortic valve is trileaflet, and appears structurally normal. No aortic stenosis or regurgitation. The mitral valve is normal. No mitral regurgitation. The tricuspid valve was not well visualized. Trace tricuspid regurgitation present. Right ventric ular systolic pressure is normal at < 35 mmHg. The pulmonic valve was not well visualized. There is no pulmonic regurgitation present. The aortic root size is normal. IVC Not well visulized. There is no pericardial effusion. CONCLUSIONS -------- 1. There is borderline concentric left ventricular hypertrophy. 2. Overall left ventricular systolic function is normal with, an EF between 55 - 60 %. 3. The aortic valve is trileaflet, and appears structurally normal. No aortic stenosis or regurgitati on. 4. Trace tricuspid regurgitation present. 5. There is no pericardial effusion. FUNDRAISER: Bertha Dobbins [facility]
[2021-06-13] MEDS ORDERED: MORPHINE SULFATE 2 MG/ML SYRINGE IVP PRN (21:49)
[2021-06-13] MEDS ORDERED: IBUPROFEN 600 MG TAB PO PRN (21:49)
[2021-06-14 05:54] VITALS: PULSE 70
[2021-06-14] MEDS ORDERED: PANTOPRAZOLE 40 MG TABLET PO SCH (07:30)
[2021-06-14 08:18] LABS: Basophils % (A) 0 %; Eosinophils % (A) 1 %; HCT 44.7 % (39.0-53.0); HGB 15.3 gm/dL (13.0-17.5); Lymphocytes # (A) 1.4 k/uL (1.0-4.8); Lymphocytes % (A) 24 %; MCH 33.4 pg (25.0-35.0); MCHC 34.2 g/dL (31.0-37.0); MCV 97.6 fL (80.0-100.0); Mean Platelet Volume 8.3; Monocytes % (A) 8 %; Neutrophils # (A) 3.9 k/uL (1.3-7.7); Neutrophils % (A) 66 %; Platelet Count 168 k/uL (150-450); RBC 4.58 m/uL (4.30-5.90); RDW 12.6 % (11.5-15.5); WBC 5.9 k/uL (3.8-10.6)
[2021-06-14 08:19] LABS: Eosinophils # (A) 0.1 k/uL (0-0.7); Monocytes # (A) 0.4 k/uL (0-1.0)
[2021-06-14 08:33] LABS: African American GFR (CKD) >90 (>60 ml/min/1.73 sqM); Anion Gap 7 mmol/L; Blood Urea Nitrogen 16 mg/dL (9-20); Carbon Dioxide 25 mmol/L (22-30); Chloride 107 mmol/L (98-107); Glucose 118 mg/dL (74-99); Non-African American GFR(CKD) >90 (>60 ml/min/1.73 sqM); Potassium 4.1 mmol/L (3.5-5.1); Sodium 139 mmol/L (137-145)
[2021-06-14] MEDS ORDERED: METOPROLOL TARTRATE 12.5 MG TAB PO SCH (09:00)
[2021-06-14] MEDS ORDERED: CHOLECALCIFEROL 25 MCG (1000 IU) TABLET PO SCH (09:00)
[2021-06-14] MEDS ORDERED: LOSARTAN 50 MG TAB PO SCH (09:00)
[2021-06-14] MEDS ORDERED: ASCORBIC ACID 500 MG TAB PO SCH (09:00)
[2021-06-14 09:33] VITALS: BP 139/85; TEMP 98
--- NOTE | 2021-06-14 14:17 | P.HPIM ---
History of Present Illness H&P Date: 06/14/21 Chief Complaint: Chest pain This will provide both an H&P and discharge summary Is a pleasant 56-year-old gentleman, patient of Dr. Sabillon. He has underlying history off hypertension and GERD, admitted to the emergency room, secondary to chest pain. Pain is located in the lower left pectoralis region, which started a few hours prior to ER presentation, and this is not aggravated by any exertion at all. Pain persisted, as pressure, without wall motion pain, and no trauma. Pain is 2 out of 10, no cough no fever no chills, no pleurisy no diaphoresis. 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 No similar symptoms in the past, no known history of heart disease, no CVA no diabetes mellitus no melena no hematemesis, no abdominal pain. Patient is on aspirin, daily as well as omeprazole 20 mg daily, patient with as needed admitted for 23 hour observation, with consult to cardiology, and trending of troponins echocardiogram initial workup was done in emergency room When seen by myself, patient has no chest pain, no chest wall tenderness on exam, 2 troponins are negative, EKG shows no acute changes, has already been cleared by cardiology for discharge, anticipating his discharge once cleared by myself today. Labs during the admission, glucose 118, liver function tests normal, hemoglobin 15.3, normal, troponins 0.0123, all negative, lipase normal 81 Echocardiogram EF 55-60%, borderline concentric LVH, aortic valve is normal, no stenosis or regurgitation, there is trace TR, no peripheral vision Review of Systems Constitutional: Reports as per HPI, Denies anorexia, Denies chills, Denies chronic headaches, Denies chronic pain, Denies daytime sleepiness, Denies fat igue, Denies fever, Denies lethargy, Denies malaise, Denies night sweats, Denies poor appetite, Denies sweats, Denies weakness, Denies weight gain, Denies weight loss Ears, nose, mouth and throat: Reports as per HPI, Denies ant. neck pain, Denies bleeding gums, Denies dental pain, Denies dysphagia, Denies epistaxis, Denies headache, Denies hoarseness, Denies mouth pain, Denies nasal congestion, Denies nasal discharge, Denies neck fullness/pressure, Denies neck lump, Denies nose pain, Denies odynophagia, Denies post-nasal drip, Denies sinus pain, Denies sinus pressure, Denies swelling in mouth, Denies swelling in throat, Denies sore throat, Denies vertigo, Denies voice changes Cardiovascular: Reports as per HPI, Reports chest pain, Denies claudication, Denies decreased exercise tolerance, Denies dyspnea on exertion, Denies edema, Denies high blood pressure, Denies irregular heart beat, Denies leg edema, Denies lightheadedness, Denies orthopnea, Denies palpitations, Denies paroxysmal nocturnal dyspnea, Denies phlebitis, Denies rapid heart beat, Denies shortness of breath, Denies syncope Respiratory: Reports as per HPI, Denies congestion, Denies cough, Denies cough with sputum, Denies dyspnea, Denies excessive sputum, Denies hemoptysis, Denies home oxygen, Denies pain, Denies pain on inspiration, Denies pleurisy, Denies respiratory infections, Denies sleep apnea, Denies snoring, Denies wheezing Gastrointestinal: Reports as per HPI, Denies abdominal pain, Denies belching, Denies bloating, Denies BRBPR, Denies change in bowel habits, Denies coffee ground emesis, Denies constipation, Denies diarrhea, Denies dyspepsia, Denies early satiety, Denies excessive gas, Denies heartburn, Denies hematemesis, Denies hematochezia, Denies indigestion, Denies jaundice, Denies lactose intol erance, Denies loss of appetite, Denies melena, Denies nausea, Denies vomiting Genitourinary: Reports as per HPI, Denies decreased libido, Denies difficulties fathering child, Denies discharge, Denies dysuria, Denies erectile dysfunction, Denies flank pain, Denies genital pain, Denies genital sores, Denies hematuria, Denies impotence, Denies incontinence, Denies kidney stones, Denies nocturia, Denies polyuria, Denies testicular lump, Denies testicular pain, Denies urinary frequency, Denies urinary hesitancy, Denies urinary retention Integumentary: Reports as per HPI Neurological: Reports as per HPI Psychiatric: Reports as per HPI Endocrine: Reports as per HPI Hematologic/Lymphatic: Reports as per HPI Allergic/Immunologic: Reports as per HPI Past Medical History Past Medical History: Hypertension Additional Past Medical History / Comment(s): Hernia History of Any Multi-Drug Resistant Organisms: None Reported Additional Past Surgical History / Comment(s): Bicep Surgery 6 years ago Past Anesthesia/Blood Transfusion Reactions: No Reported Reaction Past Psychological History: No Psychological Hx Reported Smoking Status: Never smoker Past Alcohol Use History: None Reported Past Drug Use History: None Reported - Past Family History Mother Family Medical History: Memory Impairment Father Family Medical History: CVA/TIA, Hypertension Medications and Allergies Home Medications Medication Instructions Recorded Confirmed Type Omeprazole 20 mg PO DAILY 11/20/20 06/13/21 History Ascorbic Acid [Vitamin C] 500 mg PO DAILY 06/13/21 06/13/21 History Aspirin EC [Ecotrin Low Dose] 81 mg PO HS 06/13/21 06/13/21 History Cholecalciferol [Vitamin D3 (25 25 mcg PO DAILY 06/13/21 06/13/21 History Mcg = 1000 Iu)] Losartan Potassium 100 mg PO DAILY 06/13/21 06/13/21 History Metoprolol Tartrate [Lopressor] 12.5 mg PO DAILY #30 tab 06/14/21 Rx Allergies Allergy/AdvReac Type Severity Reaction Status Date / Time No Known Allergies Allergy Verified 06/13/21 11:09 Physical Exam Vitals: Vital Signs Temp Pulse Pulse Resp BP BP Pulse Ox 06/14/21 08:00 70 16 06/14/21 07:00 98 F 83 16 139/85 99 06/14/21 05:53 97.6 F 70 16 116/70 96 06/14/21 00:00 98.2 F 76 16 115/69 97 06/13/21 20:00 98 F 81 16 107/53 95 06/13/21 16:56 98.3 F 85 16 114/70 97 06/13/21 16:37 98.3 F 85 16 114/70 97 06/13/21 15:00 98.0 F 77 18 115/79 98 Intake and Output 06/13/21 06/14/21 06/14/21 22:59 06:59 14:59 Intake Total 597 Balance 597 Intake: Oral 597 Other: Voiding Method Toilet Toilet Toilet # Voids 2 Weight 99.79 kg - Constitutional General appearance: cooperative, no acute distress - EENT Eyes: anicteric sclerae, EOMI, PERRLA, dentition normal, normal appearance ENT: NA/AT, normal oropharynx - Neck Carotids: bilateral: upstroke normal, negative: upstroke delayed, upstroke diminished - Respiratory Respiratory: bilateral: CTA, negative: diminished, dullness - Cardiovascular Rhythm: regular Heart sounds: normal: S1, S2 Abnormal Heart Sounds: no systolic murmur, no diastolic murmur, no rub, no S3 Gallop, no S4 Gallop, no click, no other - Gastrointestinal General gastrointestinal: normal bowel sounds, soft - Integumentary Integumentary: decreased turgor, normal - Neurologic Neurologic: CNII-XII intact - Musculoskeletal Musculoskeletal: gait normal, strength equal bilaterally - Psychiatric Psychiatric: A&O x's 3, appropriate affect, intact judgment & insight Results CBC & Chem 7: 06/14/21 07:49 06/14/21 07:49 Labs: Abnormal Lab Results - Last 24 Hours (Table) 06/14/21 Range/Units 07:49 Glucose 118 H (74-99) mg/dL Laboratory Results WBC 5.9 k/uL (3.8-10.6) 06/14/21 07:49 RBC 4.58 m/uL (4.30-5.90) 06/14/21 07:49 Hgb 15.3 gm/dL (13.0-17.5) 06/14/21 07:49 Hct 44.7 % (39.0-53.0) 06/14/21 07:49 MCV 97.6 fL (80.0-100.0) 06/14/21 07:49 MCH 33.4 pg (25.0-35.0) 06/14/21 07:49 MCHC 34.2 g/dL (31.0-37.0) 06/14/21 07:49 RDW 12.6 % (11.5-15.5) 06/14/21 07:49 Plt Count 168 k/uL (150-450) 06/14/21 07:49 MPV 8.3 06/14/21 07:49 Neutrophils % 66 % 06/14/21 07:49 Lymphocytes % 24 % 06/14/21 07:49 Monocytes % 8 % 06/14/21 07:49 Eosinophils % 1 % 06/14/21 07:49 Basophils % 0 % 06/14/21 07:49 Neutrophils # 3.9 k/uL (1.3-7.7) 06/14/21 07:49 Lymphocytes # 1.4 k/uL (1.0-4.8) 06/14/21 07:49 Monocytes # 0.4 k/uL (0-1.0) 06/14/21 07:49 Eosinophils # 0.1 k/uL (0-0.7) 06/14/21 07:49 Basophils # 0.0 k/uL (0-0.2) 06/14/21 07:49 PT 10.3 sec (9.0-12.0) 06/13/21 10:50 INR 0.9 (<1.2) 06/13/21 10:50 APTT 23.2 sec (22.0-30.0) 06/13/21 10:50 Sodium 139 mmol/L (137-145) 06/14/21 07:49 Potassium 4.1 mmol/L (3.5-5.1) 06/14/21 07:49 Chloride 107 mmol/L (98-107) 06/14/21 07:49 Carbon Dioxide 25 mmol/L (22-30) 06/14/21 07:49 Anion Gap 7 mmol/L 06/14/21 07:49 BUN 16 mg/dL (9-20) 06/14/21 07:49 Creatinine 0.83 mg/dL (0.66-1.25) 06/14/21 07:49 Est GFR (CKD-EPI)AfAm >90 (>60 ml/min/1.73 sqM) 06/14/21 07:49 Est GFR (CKD-EPI)NonAf >90 (>60 ml/min/1.73 sqM) 06/14/21 07:49 Glucose 118 mg/dL (74-99) H 06/14/21 07:49 Calcium 9.0 mg/dL (8.4-10.2) 06/14/21 07:49 Magnesium 2.0 mg/dL (1.6-2.3) 06/13/21 10:50 Total Bilirubin 1.2 mg/dL (0.2-1.3) 06/13/21 10:50 AST 27 U/L (17-59) 06/13/21 10:50 ALT 43 U/L (4-49) 06/13/21 10:50 Alkaline Phosphatase 63 U/L (38-126) 06/13/21 10:50 Troponin I <0.012 ng/mL (0.000-0.034) 06/13/21 17:48 Total Protein 7.7 g/dL (6.3-8.2) 06/13/21 10:50 Albumin 4.7 g/dL (3.5-5.0) 06/13/21 10:50 Lipase 81 U/L (23-300) 06/13/21 10:50 Thrombosis Risk Factor Assmnt - Choose All That Apply Each Factor Represents 1 point: Age 41-60 years Thrombosis Risk Factor Assessment Total Risk Factor Score: 1 Thrombosis Risk Factor Assessment Level: Low Risk Assessment and Plan Plan: 1. Atypical chest pain, ruled out ACS, no prior history off CAD in the past, patient's cleared by cardiology, for discharge with -3 troponins, echocardiogram is unremarkable except for borderline LVH outpatient follow-up up, with stress echocardiogram 2. Hypertension currently on losartan 100 mg daily 3. Chronic aspirin use 81 mg, for primary prevention, no known history of CVA or NC, these needs be discussed by cardiology based on new recommendations for CAD, no family history of CAD, unknown lipid panel test currently has no smoking history 4. GI prophylaxis DVT prophylaxis GERD, on maintenance omeprazole 20 mg daily discharge planning, home, stable follow-up with cardiology and PCP for future cardiac workup
--- NOTE | 2021-06-14 15:07 | CONS ---
CONSULTATION Dimitri Constantino is a 56-year-old gentleman with history of hypertension who takes losartan at home and also inconsistently aspirin 81 mg daily and omeprazole. He is a reasonably active person. He had a stress test more than 5 years ago, and according to him it was normal at that time. However, he came into the hospital with an episode of what he described as a sharp pain in the chest that comes and goes without obvious precipitating factors. It is in the left lateral chest aspect, a pressure-like feeling. No radiation. It comes randomly without obvious precipitating factors. At the time of my evaluation, he has no symptoms, is resting comfortably. He went snowmobiling and did quite a bit of physical work a week ago without symptoms. PAST MEDICAL HISTORY: 1. Hypertension. 2. He is status post some biceps tendon repair 6 years ago. ALLERGIES: NONE. MEDICATIONS: 1. Omeprazole 20 mg daily. 2. Aspirin 81 mg daily, which he does not take regularly. 3. Losartan 100 mg daily. PHYSICAL EXAMINATION: Blood pressure is 130/70, pulse rate is about 80 per minute, regular. HEENT unremarkable. Fundus was not examined by me. Neck is supple. No JVD. I do not hear a carotid bruit. There is no thyromegaly. Heart exam reveals S1, S2 heard normally. No rub, murmur or gallop. Lungs are clear. Abdomen is soft, nontender. Lower extremities reveal normal pulses. No edema. Central nervous system is normal. EKG revealed sinus mechanism, no acute changes. IMPRESSION: 1. Atypical chest pain. 2. Hypertension. 3. Negative stress test more than 5 years ago, according to the patient. RECOMMENDATIONS: Patient's presentation, symptomatology, troponins and EKG do not suggest any active ongoing myocardial ischemia. I am suggesting that he can be discharged on aspirin 81 mg daily in addition to losartan and 12.5 mg of metoprolol tartrate every morning. I will see him in the office next week and perform a stress test and noninvasive workup. I explained to the patient not to do strenuous activity but to call me if there is a question, concern or problem. He can be discharged today. Thank you very much for the consult. MMODL / IJN: [id number] /
[2021-06-14] MEDS ORDERED: ASPIRIN 81 MG PO SCH (21:00)
== END 2021-06-14 12:01 | disposition home or self-care (01) ==
LOC: EC 10:12 → 6NMEDSUR 13:12 → 3SCARD 15:10
PROVIDERS: ADMIT Family Medicine; ATTEND Family Medicine
DX: R07.89 Other chest pain (principal); I10 Essential (primary) hypertension; R61 Generalized hyperhidrosis; K21.9 Gastro-esophageal reflux disease without esophagitis; Z79.82 Long term (current) use of aspirin; Z79.899 Other long term (current) drug therapy; Z82.3 Family history of stroke; Z82.49 Family history of ischemic heart disease and other diseases of the circulatory system
CPT/HCPCS: 99285; 36415; 93005; 93306; 80053; 80048; 83690; 83735; 84484; 85025 ×2; 85610; 85730; 71046; G0378 ×2

== ENCOUNTER 2021-06-24 06:27 | Day surgery (SDC) | payer BC ==
[2021-06-23 11:22] VITALS: BMI 29.0
[2021-06-24 06:52] VITALS: TEMP 97.9
[2021-06-24] MEDS ORDERED: LACTATED RINGERS 1,000 ML IV ONE (06:53)
[2021-06-24] MEDS ORDERED: IOPAMIDOL M200 10 ML VIAL ONE (07:24)
[2021-06-24] MEDS ORDERED: fentaNYL (PF) 50 MCG/ML 2 ML AMP ONE (07:24)
[2021-06-24] MEDS ORDERED: TRIAMCINOLONE ACETONIDE 40 MG/ML 1 ML VIAL ONE (07:24)
[2021-06-24] MEDS ORDERED: MIDAZOLAM 2 MG/2 ML VIAL ONE (07:24)
[2021-06-24] MEDS ORDERED: IV FLUID CONTINUATION 1,000 ML IV ONE (07:43)
[2021-06-24 07:47] VITALS: RESP 16
[2021-06-24 08:08] VITALS: BP 125/77; PULSE 59
--- NOTE | 2021-06-24 12:28 | P.PCN ---
Date of Procedure: 06/24/21 Description of Procedure: PREOPERATIVE DIAGNOSIS: 1-lumbar radiculopathy 2-Lumbar spondylosis with Facet arthropathy without myelopathy POSTOPERATIVE DIAGNOSIS: Lumbar radiculopathy 2-Lumbar spondylosis with Facet arthropathy without myelopathy PROCEDURE 1. Lumbar epidural steroid injection under fluoroscopic guidance at the L4-L5 level. 2. Lumbar epidurogram. ANESTHESIA: Local with 1% lidocaine 3 ml and IV sedation with Versed 2 mg ,and fentanyl 100 Mcg EBL: Minimal PROCEDURE INDICATION: The patient with low back pain and radiculitis symptoms unresponsive to conservative treatment. Fluoroscopy was used to optimize visualization of the needle placement and to maximize safety. Patient only takes ASA 81mg PROCEDURE DESCRIPTION / TECHNIQUE: The patient was seen and identified in the preoperative area. Risks, benefits, complications including but not limited to infections ,bleeding ,allergic reaction to the medications ,nerve damage and not complete pain releife , and alternatives were discussed with the patient. The patient agreed to proceed with the procedure and signed the consent. IV was started, and vital signs were stable. Patient was taken to the OR and time out was completed. The patient was placed in the prone position on procedure table and a pillow was placed under the abdomen to reduce lumbar lordosis. The lumbosacral area was prepped and draped in the usual sterile fashion.ere closely monitored during the procedure. Conscious sedation was used during the procedure to decrease patients anxiety. Vital signs was monitored during the entire procedure. Using anterior-posterior fluoroscopy, the L4-L5 interlaminar space was identified and the skin over this site was marked and then infiltrated with 1% lidocaine subcutaneously. Subsequently, a 20-gauge Tuohy epidural needle was inserted and advanced toward the epidural space using the ``Loss of resistance technique and guided by AP and lateral fluoroscopy. The correct needle position in the epidural space was verified with the injection of 2 mL of the water soluble contrast dye Omnipaque 180 contrast and observing an excellent epidurogram with the epidural spread of the dye, after negative aspiration for blood and CSF and in the absence of paresthesias. Again after negative as piration, a 6 ml mixture containing 40 mg of Kenalog and 4 ml of preservative free Normal Saline was injected and a washout of epidurogram was seen. Needle was withdrawn intact, skin was cleansed, and bandages were applied. COMPLICATIONS: None DISPOSITION / PLANS: The patient was placed in a supine position and transferred to the recovery area in a stable condition for observation. There was no evidence of lower extremity motor or sensory deficit after the procedure. Patient was discharged from the recovery room after meeting discharge criteria. Home discharge instructions were given to the patient by the staff. The patient was reexamined prior to discharge. signs and symptoms of epidural hematoma were explained to patient with understanding. The patient will schedule a follow up in the clinic in 2-4 weeks.
--- NOTE | 2021-06-24 14:10 | FL ---
Fluoroscopy HISTORY: Pain 3 seconds fluoroscopy time supplied to the referring clinician. 1 intraoperative C-arm images docume nt the procedure. See dictated report from anesthesia.
== END 2021-06-24 08:18 | disposition home or self-care (01) ==
LOC: ORPAIN 06:27
PROVIDERS: ATTEND Anesthesiology
DX: M47.26 Other spondylosis with radiculopathy, lumbar region (principal); Z79.82 Long term (current) use of aspirin
CPT/HCPCS: 62323; J2250; J3301; J3010; Q9966; 99152

== ENCOUNTER → 2021-07-21 | Outpatient (CLI) | payer BC ==
[2021-07-21 14:24] VITALS: BP 114/63; PULSE 69; RESP 18; TEMP 98.4
--- NOTE | 2021-07-21 14:46 | P.PN ---
Subjective Progress Note Date: 07/21/21 Principal diagnosis: A 56 yr old male with a history of severe and chronic low back pain secondary to lumbar degenerative disc diseases and lumbar spondylosis with facet arthropathy presents today for evaluation s/p LESI L4-L5 #3. Patient states he received 75% pain relief x 2 weeks s/p procedure. Pain level is currently at 4 out of 10 in intensity, sharp, and achy in the mid lower aspects of his lumbar spine without radiation of pain. Pain is provoked by bending, twisting, lifting or any other type of yard work. Pain is alleviated with medications, injections, altering ice and heat, physical therapy in the past, chiropractic treatments 2 years ago which provided no relief, daily home exercise regimen and rest. Interventional pain procedures completed include LESI L4-L5 #3 Patient is currently on Motrin OTC Patient denies any side effects of the medication(s), denies excessive drowsiness or sleepiness, denies suicidal ideation and reports that the current pain medication is helping to control the pain and improve activities of daily living. Patient denies any motor or sensory deficits. Patient denies any fever or night sweats, denies any change in the bowel movements or urination. Physical Examination: -Constitutional: Cooperative. Not in acute distress . -HEENT: Neck is supple. No lymphadenopathy. No thyromegaly. Normal thyroid size. Eyes: No ptosis , no icterus, no photophobia. ENT: No auditory deficits. Normal oropharynx. No Thrush. - Respiratory: Chest clear to auscultations bilaterally. No wheezing. No rhonchi. - Cardiovascular: Regular rate and rhythm. S1 / S2 , no S3 , no S4. - Gastrointestinal: Abdomen soft no tenderness. Bowel sounds positive in all four quadrants. No organomegaly. - Genitourinary: Deferred. - Neurologic: Cranial nerve II to XII intact. No focal neurological defi cits. - Psychatric: Alert & oriented x 3. Matching mood & appropriate affect. Judgment and insight intact. - Lymphatic: No Lymphadenopathy. - Musculoskeletal: Cervical spine: Muscle bulk/ tone/ strength in the bilateral upper extremities normal. Facet loading test cervical area positive. Lumbar spine: Motor bulk/ tone/ strength lower extremities , thigh and legs : 5/5 Deep tendon reflexes : Normal Knee Jerk. Normal Ankle Jerk . Vertebral body tenderness to palpation over L4 Lumbar Facet Loading Test positive Straight Leg Raise: positive at 30 degrees right side/ left side Gaenslen's Test positive Sacral spine : Severe tenderness over the Sacroiliac joint: right side / left side Range of motion: Flexion of the lumbar spine <60 degrees Range of motion: Extension of the lumbar spine <20 degrees Gaenslen's Test positive Theo test: positive right side / left side Assessment and plan: Chronic low back pain secondary to lumbar degenerative disc disease , lumbar spondylosis with facet arthropathy without myelopathy Recommendation to restart physical therapy 3 times a week x 6 weeks with integrated massage and lumbar traction. Patient received fair pain relief with the procedures and may return to our clinic on an as needed basis if the pain returns. All patient questions answered MAPS reviewed and it was appropriate. I have spent 31 minutes on patient care today. Dr Prado was available by phone for the evaluation of this patient. The time was used to review the medical records including relevant urine studies and Prescription history (MAPs), review of the available imaging, evaluation and examination of the patient, coordination of care with the medical staff and if applicable referring physicians, as well as creation of the medical record Objective - Vital Signs Vital signs: Vital Signs Temp 98.4 F 07/21/21 14:18 Pulse 69 07/21/21 14:18 Resp 18 07/21/21 14:18 BP 114/63 07/21/21 14:18 Pulse Ox 96 07/21/21 14:18 PQRS Measure Charge Sheet Mode of Arrival: Ambulatory - Pain Location Lower Back Non-Pharmacological Interventions: Chiropractic Treatment, Heat, Home Exercise, Ice, Physical Therapy, Position/Reposition, Stretching Pharmacological Interventions: Epidural, PRN Medication PQRS Narrative: Blood Pressure 114/63 Pain Intensity [Lower Back] 4 Hx Alcohol Use (MH) Yes: social Home Medications: Ambulatory Orders Omeprazole 20 mg PO DAILY 11/20/20 Ascorbic Acid [Vitamin C] 500 mg PO DAILY 06/13/21 Aspirin EC [Ecotrin Low Dose] 81 mg PO HS 06/13/21 Cholecalciferol [Vitamin D3 (25 Mcg = 1000 Iu)] 25 mcg PO DAILY 06/13/21 Losartan Potassium 100 mg PO DAILY 06/13/21 Ibuprofen [Motrin Ib] 400 - 600 mg PO Q8H PRN 07/17/21
== END | disposition home or self-care (01) ==
LOC: PNWHC3 13:49
PROVIDERS: ATTEND Specialist
DX: M47.896 Other spondylosis, lumbar region (principal); M51.36 Other intervertebral disc degeneration, lumbar region
CPT/HCPCS: 99211

== ENCOUNTER → 2022-02-23 | Outpatient (CLI) | payer BC ==
--- NOTE | 2022-02-23 19:43 | MR ---
EXAMINATION TYPE: MR lumbar spine wo con DATE OF EXAM: 02/23/2022 4:39 PM COMPARISON: 03/28/2021 CT. CLINICAL INDICATION:Male, 57 years old with history of M43.07 SPONDYLOLYSIS, LUMBOSACRAL REGION; TECHNIQUE: Multi planar, multi sequence imaging was performed utilizing: T1-weighted, T2-weighted, a nd turbo inversion recovery imaging of the lumbar spine. IV Contrast: None FINDINGS: Alignment: The lumbar vertebral bodies have preserved heights and alignment. Cord: The conus medullaris and the distal spinal cord appear unremarkable with regards to their signa l intensity and morphology. Bones/Discs: Reactive bony edema along the inferior endplates of L3 and L4 and superior endplate of L 5. Multilevel degenerative disc disease is noted and most pronounced at the . L1-L2: No significant disc pathology. Spinal canal is patent. The neural foramen are patent. L2-L3: Disc bulge and facet joint arthropathy result in moderate to severe spinal canal and moderate bilateral neural foraminal stenosis. L3-L4: Disc bulge and facet joint arthropathy result in moderate spinal canal and moderate bilateral neural foraminal stenosis. L4-L5: Disc bulge and facet joint arthropathy result in mild to moderate spinal canal and moderate to severe bilateral neural foraminal stenosis. L5-S1: No significant disc pathology. Spinal canal is patent. Facet joint arthropathy with mild bilat eral neural foraminal stenosis. Other findings: None. IMPRESSION: 1. No definitive evidence of disc herniation. 2. Multilevel disc degeneration with associated osteoarthritic changes worse at L4-L5 with large sev ere bilateral neural foraminal stenosis and moderate L2-L3 with moderate severe spinal canal stenosis , additionally there is L3-L4 moderate spinal canal stenosis. 3. Vertebral body reactive edema at L3 L4 L5 likely secondary to acute Schmorl's nodes.
== END | disposition home or self-care (01) ==
LOC: RADMRIMAIN 15:29
PROVIDERS: ATTEND Orthopaedic Surgery
DX: M51.36 Other intervertebral disc degeneration, lumbar region (principal); M48.061 Spinal stenosis, lumbar region without neurogenic claudication; M47.816 Spondylosis without myelopathy or radiculopathy, lumbar region; M99.73 Connective tissue and disc stenosis of intervertebral foramina of lumbar region
CPT/HCPCS: 72148

== ENCOUNTER → 2023-05-24 | Outpatient (CLI) | payer BC ==
--- NOTE | 2023-05-24 16:30 | US ---
EXAMINATION TYPE: US carotid duplex BILAT DATE OF EXAM: 05/24/2023 COMPARISON: NONE CLINICAL INDICATION: Male, 58 years old with history of R55 SYNCOPE AND COLLAPSE; TECHNIQUE: Carotid duplex ultrasound examination. Indirect Doppler criteria was utilized. FINDINGS: EXAM MEASUREMENTS: RIGHT: Peak Systolic Velocity (PSV) cm/sec ----- Right CCA: 82.4 ----- Right ICA: 76.3 ----- Right ECA: 96.9 ICA/CCA ratio: 0.9 RIGHT: End Diastole cm/sec ----- Right CCA: 20.7 ----- Right ICA: 27.3 ----- Right ECA: 18.2 LEFT: Peak Systolic Velocity (PSV) cm/sec ----- Left CCA: 92.3 ----- Left ICA: 67.2 ----- Left ECA: 90.5 ICA/CCA ratio: 0.7 LEFT: End Diastole cm/sec ----- Left CCA: 25.4 ----- Left ICA: 27.3 ----- Left ECA: 14.1 VERTEBRALS (direction of flow): Right Vertebral: Antegrade Left Vertebral: Antegrade Rhythm: Normal No significant stenosis IMPRESSION: Less than 50% stenosis of the bilateral carotid bifurcations. Criteria for Assigning % of Stenosis / Diameter reduction (Estimation based on the indirect measurements of the internal carotid artery velocities (ICA PSV). 1. Normal (no stenosis)=ICA PSV < 125 cm/s: ratio < 2.0: ICA EDV<40 cm/s. 2. Less than 50% stenosis=ICA PSV < 125 cm/s: ratio < 2.0: ICA EDV<40 cm/s. 3. 50 to 69% stenosis=ICA PSV of 125 to 230 cm/s: ration 2.0 ? 4.0: ICA EDV 40-100 cm/s. 4. Greater than 70% stenosis to near occlusion= ICA PSV > 230 cm/s: ratio > 4.0: ICA EDV > 100 cm/s. 5. Near occlusion= ICA PSV velocities may be low or undetectable: variable ratio and ICA EDV. 6. Total occlusion=unable to detect flow.
== END | disposition home or self-care (01) ==
LOC: RADUSWWP 15:53
PROVIDERS: ATTEND Family Medicine
DX: I65.23 Occlusion and stenosis of bilateral carotid arteries (principal); R55 Syncope and collapse
CPT/HCPCS: 93880

== ENCOUNTER → 2024-03-01 | Outpatient (CLI) | payer BC | END | disposition home or self-care (01) | LOC: LABWHC1 11:13 | PROVIDERS: ATTEND Urology | DX: R97.20 Elevated prostate specific antigen [PSA] (principal) | CPT/HCPCS: 36415; 84153 ==